=== PATIENT | female | born 2000 | race Caucasian/White ===

== ENCOUNTER 2024-07-22 23:10 | Emergency (ER) | payer BC, SELFPAY ==
[2024-07-22 23:14] VITALS: BP 107/67
--- NOTE | 2024-07-22 23:57 | ED.GENMED ---
History of Present Illness
<Armando Humphreys MD, Resident - Last Filed: 07/23/24 01:58>
General
Chief Complaint: Allergic Reaction
Source: patient
Time Seen by Provider: 07/22/24 23:21
Travel History
Have you traveled to any high risk areas for coronavirus over the past 14 days?: No
Have you had any contact with someone who has COVID-19?: No
Do you have any symptoms of coronavirus? Fever > 100 degrees, chills, cough, shortness of breath, sore throat, loss of taste or smell, muscle aches, or headache?: No
History of Present Illness
History of Present Illness:
Georgina Del Toro, age 24, developed itching and hives earlier this evening. Now on her face, trunk, lower and upper extremities. She took diphenhydramine 25 mg when it started but did not help. Started using a new shampoo a week ago, and goes on nature
walks. Denies taking any new medications, supplementations or foods. She has a remote history of urticaria a few years ago, which was limited to her upper extremity. Denies shortness of breath, difficulty breathing or swallowing, chest or abdominal
pain, lightheadedness or dizziness, or palpitations.
Past History
<Armando Humphreys MD, Resident - Last Filed: 07/23/24 01:58>
Past History
ED Past Medical History: Other (polycystic ovarian syndrome)
ED Past Surgical History: Other (myringotomy; blocked tear duct repair)
Social History
Tobacco: Non-smoker
Alcohol: Occasional
Drug: None
Review of Systems
<Armando Humphreys MD, Resident - Last Filed: 07/23/24 01:58>
Review of Systems
All Other Systems: Not applicable
Constitutional: Reports no symptoms
EENT: Reports no symptoms
Respiratory: Reports no symptoms
Cardiac: Reports no symptoms
ABD/GI: Reports no symptoms
: Reports no symptoms
Musculoskeletal: Reports no symptoms
Skin: Reports no symptoms
Neurological: Reports no symptoms
Endocrine: Reports no symptoms
Hematologic/Lymphatic: Reports no symptoms
Psychiatric: Reports no symptoms
Phy Exam
<Armando Humphreys MD, Resident - Last Filed: 07/23/24 01:58>
General Physical Exam
General Presentation: well appearing and no apparent distress
General Skin: warm and dry
General Habitus: normal
General Mental: alert
General Hydration: appears well hydrated
ENT Exam
ENT Exam: EOMI, pharynx normal, neck supple and normocephalic
Eye Exam
Eye Exam: PERRL, cornea clear and conjunctiva normal
Cardiovascular Exam
Cardiovascular Exam: regular rate/rhythm, no edema, no murmur and normal peripheral pulses
Pulmonary Exam
Pulmonary Exam: lungs clear, no respiratory distress, no rales, no crackles, no rhonchi, no stridor, no wheezing and no cough
Gastrointestinal Exam
Gastrointestinal Exam: normal bowel sounds, non tender, soft, no organomegaly, no pulsatile mass and non distended
Neurological Exam
Neurological Exam: alert, oriented x3, no motor deficits and speech normal
Musculoskeletal Exam
Musculoskeletal Exam: full ROM and no edema
Skin Exam
Skin Exam: other (diffuse hives on face, trunk, bilateral lower and upper extremities)
Psychiatric Exam
Psychiatric Exam: normal mood/affect
Course
<Armando Humphreys MD, Resident - Last Filed: 07/23/24 01:58>
Orders/Labs/Results
Orders:
Orders
07/22/24 23:55
Dexamethasone Sod Phosphate [Decadron] 10 mg IV NOW STA
Diphenhydramine [Benadryl] 25 mg IV NOW STA
Famotidine [Pepcid] 20 mg IV NOW STA
Vital Signs
Initial and Last Documented VS:
Initial Vital Signs
Temp Pulse Resp BP Pulse Ox
98.3 F 80 20 107/67 97
07/22/24 23:14 07/22/24 23:14 07/22/24 23:14 07/22/24 23:14 07/22/24 23:14
Last Documented Vital Signs
Temp Pulse Resp BP Pulse Ox
98.3 F 71 16 100/64 99
07/22/24 23:14 07/23/24 01:38 07/23/24 01:38 07/23/24 01:38 07/23/24 01:38
<Rosario Conn DO - Last Filed: 07/23/24 01:52>
Orders/Labs/Results
Orders:
Orders
07/22/24 23:55
Dexamethasone Sod Phosphate [Decadron] 10 mg IV NOW STA
Diphenhydramine [Benadryl] 25 mg IV NOW STA
Famotidine [Pepcid] 20 mg IV NOW STA
Vital Signs
Initial and Last Documented VS:
Initial Vital Signs
Temp Pulse Resp BP Pulse Ox
98.3 F 80 20 107/67 97
07/22/24 23:14 07/22/24 23:14 07/22/24 23:14 07/22/24 23:14 07/22/24 23:14
Last Documented Vital Signs
Temp Pulse Resp BP Pulse Ox
98.3 F 71 16 100/64 99
07/22/24 23:14 07/23/24 01:38 07/23/24 01:38 07/23/24 01:38 07/23/24 01:38
<Rosario Conn DO - Last Filed: 07/23/24 01:52>
*Pulse Oximetry
Patient hypoxic: no
*Technical Sales Director Interpretation
Rate: normal
Interpretation: normal
Rhythm: sinus
*Critical Care Note
Total Time (30-74mins, 75-104mins- exclusive of procedures): Not Applicable
ED Attending Note
<Armando Humphreys MD, Resident - Last Filed: 07/23/24 01:58>
-
Portions of this chart may have been created with voice recognition software.� Occasional wrong word or��sound alike� substitutions may have occurred due to the inherent limitations of voice recognition software.
<Rosario Conn DO - Last Filed: 07/23/24 01:52>
ED Attending Note
Patient seen and examined by attending physician: Yes
I performed a history and physical exam of patient and discussed management with resident, I reviewed resident's note and agree with documented findings and plan of care.: Yes
ED Attending Note:
24-year-old woman with history of PCOS presents with abrupt onset of hives, generalized urticaria that began this evening approximately 30 minutes after taking a shower. Hives initially began primarily on her face, neck, upper chest then spread to
generalized hives. Her mother gave her a dose of Benadryl, 50 mg at 6 PM without significant improvement. No history of similar episodes of generalized hives. No associated symptoms.
The only new potential causative agent is a new shampoo that she began using 1 week ago.
She denies risk of , last normal menstrual period was 1 week ago, normal and on time. Currently not sexually active.
24-year-old overweight female appears her stated age, bright and alert, pleasant, appears in no acute distress. Speech is clear. Mother is accompanying.
HEENT: Posterior pharynx is clear. There is no angioedema.
Heart is regular rate and rhythm.
Lungs are clear to auscultation, respirations are easy and nonlabored. No cough appreciated.
Skin with generalized urticaria primarily located face, neck, shoulders and upper chest.
Patient presents with acute allergic reaction, generalized urticaria but nothing to suggest anaphylactoid/anaphylactic reaction.
Causative agent could certainly be new shampoo and recommend she discontinue using this shampoo.
Will treat with IV Benadryl, IV Pepcid, IV Decadron and plan for prescription for prednisone taper.
Recommend a short course of a daily antihistamine such as Zyrtec/Claritin along with as needed Benadryl 50 mg every 4-6 hours as needed for recurrent hives.
Prompt follow-up with PCP for recheck.
Return precautions discussed.
07/23/2024 0152 AM
Hives have near completely resolved.
Patient resting comfortably.
Discharge plan as above.
Discharge Plan
Departure
Patient Disposition: Home (Routine Discharge)
Date of Disposition: 07/23/24
Time of Disposition: 01:49
Patient with high blood pressure during this ER visit?: No
Condition: Good
Discharge Problem:
Acute allergic reaction
Instructions: Hives (DC), Allergic Reaction ED
Prescriptions:
New
prednisone 10 mg Tablet
See Rx Instructions .ROUTE .COMPLEX Qty: 30 0RF
Rx Instructions:
Take By Mouth:
40 mg daily x3 days, 30 mg daily x3 days,
20 mg daily x3 days, 10 mg daily x3 days.
No Action
metformin 500 MG tablet
1,500 mg PO DAILY
norethindrone-e.estradiol-iron [ FE ()] 1 EACH tablet
1 tab PO DAILY
Biotin
7,500 mcg PO DAILY
Potassium
1 oint PO DAILY
Vitamin D3:
1 tab PO DAILY
cephalexin 500 MG capsule
500 mg PO BID Qty: 20 0RF
Referrals:
NONE,* [Family Provider] - As needed
Activity Restrictions/Additional Instructions:
Start a daily antihistamine such as Claritin or Zyrtec once daily and take this for at least the next 7 to 10 days.
If hives recur you can take Benadryl 50 mg every 4-6 hours as needed.
Discontinue using the dandruff shampoo as I suspect this was cause for allergic reaction.
Interventions
Interventions:
*Risk Screen - Suicide Last Done: 07/22/24 23:14
*General Assessment Last Done: 07/22/24 23:14
*Neglect/Abuse Screening Last Done: 07/22/24 23:14
ED- Fall Risk Assessment Last Done: 07/22/24 23:14
*ED COVID-19 Vaccine History Last Done: 07/22/24 23:14
ED- Cardiac Assessment Last Done: 07/22/24 23:46
ED- Pulmonary Assessment Last Done: 07/22/24 23:46
ED-Skin Assessment Last Done: 07/23/24 01:38
Discharge Date and Time
Print Language: MOHAWK
[2024-07-23] MEDS: PEPCID 20 MG IV (00:11)
[2024-07-23] MEDS: DECADRON 10 MG IV (00:13)
[2024-07-23] MEDS: BENADRYL 25 MG IV (00:14)
[2024-07-23 01:38] VITALS: BP 100/64
== END 2024-07-23 02:03 | disposition home or self-care (01) ==
LOC: EMR 23:10
PROVIDERS: EMERGENCY PHYSICIAN Emergency Medicine
DX: L50.0 Allergic urticaria (principal); E28.2 Polycystic ovarian syndrome
CPT/HCPCS: 99284; 96374; 96375 ×2

== ENCOUNTER 2024-07-24 08:24 | Emergency (ER) | payer BC, SELFPAY ==
[2024-07-24 08:28] VITALS: BP 107/69
[2024-07-24] MEDS: BENADRYL 50 MG IV (09:00)
[2024-07-24] MEDS: PEPCID 20 MG IV (09:00)
[2024-07-24] MEDS: DECADRON 10 MG IV (09:00)
[2024-07-24 11:00] VITALS: BP 106/64
--- NOTE | 2024-07-24 15:07 | ED.GENMED ---
History of Present Illness
General
Chief Complaint: Allergic Reaction
Source: patient and records
Time Seen by Provider: 07/24/24 08:35
History of Present Illness
History of Present Illness:
24yoF with a history of PCOS presenting with her mother for evaluation of a rash. Patient was seen in the ED 2 days ago for a rash/allergic reaction. She received IV Decadron, Benadryl, and Pepcid during her ED stay with improvement. She was
discharged with a prednisone taper. She has taken 1 dose of prednisone thus far. She was doing well yesterday with a very minimal rash. She woke up this morning with a worsening generalized red itchy rash and decided to come back to the ED.
Patient has not taken any medications so far today. She denies any shortness of breath, dysphagia, vomiting, diarrhea, fevers, URI symptoms. Her symptoms were thought to be related to a new shampoo at her last visit. Patient has not used the
shampoo since. Mother believes she may be having a reaction to the flu and COVID vaccines that she received 6 days ago. Patient denies any other new exposures.
Past History
Past History
ED Past Medical History: Other (polycystic ovarian syndrome)
ED Past Surgical History: Other (myringotomy; blocked tear duct repair)
Social History
Tobacco: Non-smoker
Alcohol: Occasional
Drug: None
Phy Exam
General Physical Exam
General Presentation: well appearing and no apparent distress
General age: appears stated age
General Skin: warm and dry
General Habitus: normal
General Mental: alert
ENT Exam
ENT Exam: pharynx normal, neck supple, normocephalic and swallowing well
Additional ENT: No oropharyngeal swelling. Normal phonation. Tolerating oral secretions.
Cardiovascular Exam
Cardiovascular Exam: regular rate/rhythm
Pulmonary Exam
Pulmonary Exam: lungs clear, no respiratory distress, no crackles and no wheezing
[place] Coma Scale
Eye Opening: Spontaneous
Verbal Response: Oriented
Motor Response: Obeys Commands
GCS Total Score: 15
Skin Exam
Skin Exam: other (Raised erythematous plaques present on trunk, bilateral arms, and bilateral legs consistent with urticaria. Blanches. No skin sloughing or signs of infection.)
Psychiatric Exam
Psychiatric Exam: normal mood/affect
Course
Orders/Labs/Results
Orders:
Orders
07/24/24 08:44
Dexamethasone Sod Phosphate [Decadron] 10 mg IV NOW STA
Diphenhydramine [Benadryl] 50 mg IV NOW STA
Famotidine [Pepcid] 20 mg IV NOW STA
Vital Signs
Initial and Last Documented VS:
Initial Vital Signs
Temp Pulse Resp BP Pulse Ox
98.0 F 83 16 107/69 100
07/24/24 08:28 07/24/24 08:28 07/24/24 08:28 07/24/24 08:28 07/24/24 08:28
Last Documented Vital Signs
Temp Pulse Resp BP Pulse Ox
98.0 F 89 18 106/64 99
07/24/24 08:28 07/24/24 11:00 07/24/24 11:00 07/24/24 11:00 07/24/24 11:00
MDM/Problems Addressed
Differential Diagnosis Includes:
24yoF here with a generalized red itchy rash. Seen in ED 2 days ago for the same and started on prednisone. Rash improved yesterday but worsened again this morning. No associated SOB, vomiting, diarrhea. No fevers or URI symptoms. Patient is
afebrile and hemodynamically stable. She is well-appearing in no acute distress. Rash noted on exam with raised erythematous plaques which are confluent in areas. Exam is consistent with urticaria. Differentials include allergic reaction, viral
rash, no signs of anaphylaxis
Initial ED plan: IV Benadryl, Pepcid, Decadron, and fluid bolus.
*Critical Care Note
Total Time (30-74mins, 75-104mins- exclusive of procedures): Not Applicable
Update Note
Update Note:
Patient reassessed multiple times and rash is gradually resolving. She remains well appearing with stable vitals. She is stable for discharge. Patient is not taking antihistamines consistently. She was advised to use Benadryl Q6 for 1-2 days and
then switch to PRN. 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 She was advised to f/u with a PCP or shirt folder there. ED return precautions discussed. She expressed understanding and is agreeable to plan. Patient
discharged in stable condition.
ED Attending Note
-
Portions of this chart may have been created with voice recognition software.� Occasional wrong word or��sound alike� substitutions may have occurred due to the inherent limitations of voice recognition software.
Discharge Plan
Departure
Patient Disposition: Home (Routine Discharge)
Date of Disposition: 07/24/24
Time of Disposition: 11:02
Patient with high blood pressure during this ER visit?: No
Discharge Problem:
Urticaria
Instructions: [place] (DC)
Prescriptions:
No Action
metformin 500 MG tablet
1,500 mg PO DAILY
norethindrone-e.estradiol-iron [ FE (28)] 1 EACH tablet
1 tab PO DAILY
Biotin
7,500 mcg PO DAILY
Potassium
1 oint PO DAILY
Vitamin D3:
1 tab PO DAILY
cephalexin 500 MG capsule
500 mg PO BID Qty: 20 0RF
prednisone 10 mg Tablet
See Rx Instructions .ROUTE .COMPLEX Qty: 30 0RF
Rx Instructions:
Take By Mouth:
40 mg daily x3 days, 30 mg daily x3 days,
20 mg daily x3 days, 10 mg daily x3 days.
Referrals:
UNKNOWN - PT DOES,NOT KNOW [Family Provider] -
Activity Restrictions/Additional Instructions:
Continue taking prednisone. Take Benadryl 25mg every 6 hours for 2-3 days and then switch to as needed. Take Pepcid 20mg twice a day.
Please follow-up with a primary care provider or shirt folder. Return to the ER with any worsening symptoms or trouble breathing.
Interventions
Interventions:
*Risk Screen - Suicide Last Done: 07/24/24 11:32
*General Assessment Last Done: 07/24/24 11:32
*Neglect/Abuse Screening Last Done: 07/24/24 11:32
ED- Fall Risk Assessment Last Done: 07/24/24 11:32
*ED COVID-19 Vaccine History Last Done: 07/24/24 11:32
*Nursing Disposition Last Done: 07/24/24 11:32
ED- Cardiac Assessment Last Done: 07/24/24 10:18
ED- Pulmonary Assessment Last Done: 07/24/24 10:18
ED-Skin Assessment Last Done: 07/24/24 10:18
Discharge Date and Time
Print Language: LITHU[place]
== END 2024-07-24 11:32 | disposition home or self-care (01) ==
LOC: EMR 08:24
PROVIDERS: EMERGENCY PHYSICIAN Emergency Medicine
DX: L50.0 Allergic urticaria (principal); E28.2 Polycystic ovarian syndrome
CPT/HCPCS: 99284; 96374; 96375 ×2